=== PATIENT | male | born 1965 | race Caucasian/White ===

== ENCOUNTER 2017-05-27 16:37 | Emergency (ER) | payer BC, OTHER ==
--- NOTE | 2017-05-27 16:42 | EDM.PDOC ---
ED HPI GENERAL MEDICAL PROBLEM - General Chief Complaint: General Stated Complaint: Finger Laceration Time Seen by Provider: 05/27/17 16:37 Source of Information: Reports: Patient, Old Records ([facility] chart/EMR) History Limitations: Reports: No Limitations - History of Present Illness INITIAL COMMENTS - FREE TEXT/NARRATIVE: The patient drove himself to the emergency room via private automobile for evaluation of a Workmen's Compensation injury, which occurred at about 15:45 hours. He accidentally cut himself on a sharp piece of metal on a piece of machinery with no history of foreign body, paresthesias, neurological deficits, or other complaints or injuries. He did rinse the laceration sites with tap water with subsequent placement of Band-Aids but no other treatment prior to arrival. His last DTaP was given on 08/17/2011, which was confirmed by the emergency room today. The patient denies any chest pain/pressure, heart flutter , dizziness, orthostasis, orthopnea, diaphoresis, paresthesias, recent decreased exercise tolerance, or any other anginal-type symptoms. No recent history of abdominal pain, heartburn, nausea, diarrhea, melena, gross hematochezia, or any food intolerance, including fatty foods, etc.. The patient also denies any recent fever, cough, wheezing, dyspnea, etc.. Onset: Today, Sudden Onset Date: 05/27/17 Onset Time: 15:45 Duration: Constant Location: Reports: Upper Extremity, Left. Denies: Head, Face, Neck, Chest, Abdomen, Back, Upper Extremity, Right, Radiates to Quality: Reports: Same as Previous Episode, Sharp Severity: Mild Improves with: Reports: Rest Worsens with: Reports: Movement Context: Reports: Trauma (As above) Associated Symptoms: Denies: Confusion, Chest Pain, Cough, cough w sputum, Diaphoresis, Fever/Chills, Headaches, Loss of Appetite, Malaise, Nausea/Vomiting , Rash, Seizure, Shortness of Breath, Syncope, Weakness Treatments [employer]: Reports: Dressing(s) Left Hand Pain Score (Numeric/FACES): 1 - Related Data Allergies Allergy/AdvReac Type Severity Reaction Status Date / Time adhesive Allergy Cannot Verified 05/27/17 17:09 Remember amlodipine Allergy Edema Verified 05/27/17 17:09 amoxicillin Allergy Cannot Verified 05/27/17 17:09 Remember measles, mumps, and rubella Allergy Other Verified 05/27/17 17:09 vaccine NSAIDS (Non-Steroidal Allergy Other Verified 05/27/17 17:09 Anti-Inflamma zoster vaccine live Allergy Other Verified 05/27/17 17:09 Home Meds: Home Meds Alendronate [Fosamax] 0.5 tab PO RODRIGUEZ 05/27/17 [History] Aspirin 81 mg PO DAILY 05/27/17 [History] Calcium Carbonate [Tums] 1,000 mg PO DAILY 05/27/17 [History] Cholecalciferol (Vitamin D3) [Vitamin D] 1 cap PO DAILY 05/27/17 [History] Methylprednisolone [IJD: Methylprednisolone] 4 mg PO DAILY PRN 05/27/17 [History ] Multivitamin with Minerals [Multivitamins with Minerals] 1 tab PO DAILY [History] Mycophenolate Mofetil 500 mg PO Q12HR 05/27/17 [History] Tacrolimus [Prograf] 1.5 mg PO Q12HR 05/27/17 [History] Past Medical History HEENT History: Reports: Impaired Vision, Other (See Below). Denies: Allergic Rhinitis, Glaucoma, Hard of Hearing, Macular Degeneration, Retinal Detachment Other HEENT History: Patient wears glasses Cardiovascular History: Reports: Arrhythmia, Hypertension, Other (See Below). Denies: Afib, Aneurysm, Blood Clots/VTE/DVT, CAD, Heart Failure, Heart Murmur, High Cholesterol, [place], PVD, Syncope Other Cardiovascular History: History of unknown type of cardiac arrhythmia including some tachycardia. Hypertension prior to renal transplant with no further medications required thereafter Respiratory History: Reports: Intubation, Previous. Denies: Asthma, Bronchitis , Recurrent, COPD, PE, Pneumonia, Recurrent, Pneumothorax, Sleep Apnea Gastrointestinal History: Reports: Inflammatory Bowel Disease, Other (See Below) . Denies: Bowel Obstruction, Celiac Disease, Cholelithiasis, Chronic Constipation, Chronic Diarrhea, Colon Polyp, Diverticulosis, Fecal Incontinence , Gastritis, GERD, GI Bleed, Hepatitis, Hiatal Hernia, Irritable Bowel Syndrome , Jaundice, Pancreatitis, PUD Other Gastrointestinal History: Crohn's disease initially diagnosed in 1996 with no symptoms and no current medical therapy required Genitourinary History: Reports: Chronic Renal Insuffiency, Other (See Below). Denies: Acute Renal Failure, BPH, Dialysis, Renal Calculus, STD, Urinary Incontinence, UTI, Recurrent Other Genitourinary History: Polycystic kidney disease requiring renal transplant as below Musculoskeletal History: Reports: Arthritis, Back Pain, Chronic, Fracture, Gout , Neck Pain, Chronic, Osteoarthritis, Osteoporosis, Other (See Below). Denies: Amputation, RA, SLE Other Musculoskeletal History: Proximal fifth right metacarpal fracture in about 1979; fracture of the middle phalanx of digit #4 of the left hand in about 1977. Mid transverse fracture of the proximal phalanx of digit #2 of the left hand on 02/14/05. Right ankle fracture in about 2004 Neurological History: Reports: Concussion, Head Trauma, Other (See Below). Denies: Cerebral Aneurysms, CVA, Headaches, Chronic, Migraines, MS, Parkinson's , Seizure, TIA Other Neuro History: Head concussion with skull fracture at age 9 years Psychiatric History: Reports: None. Denies: Abuse, Victim of, ADD, ADHD, Addiction, Anxiety, Depression, Psych Hospitalization(s), PTSD, Suicide Attempt , Suicidal Ideation Endocrine/Metabolic History: Reports: Osteopenia, Osteoporosis. Denies: Diabetes, Type I, Diabetes, Type II, Diabetes Mellitus, Type 3c, Hypothyroidism , IDDM Hematologic History: Reports: Anemia, Iron Deficiency, Other (See Below). Denies: Blood Transfusion(s) Other Hematologic History: Iron deficiency anemia prior to renal transplantation Immunologic History: Reports: None. Denies: AIDS, HIV, SLE Oncologic (Cancer) History: Reports: Basal Cell Carcinoma, Other (See Below). Denies: Colon, Hodgkin's Lymphoma, Leukemia, Malignant Melanoma, Non-Hodgkin's Lymphoma, Prostate, Squamous Cell Carcinoma Other Oncologic History: basal cell carcinoma on the back excised in January 2017 Dermatologic History: Reports: Other (See Below). Denies: Eczema, Psoriasis Other Dermatologic History: Basal cell carcinoma as above/below. Actinic keratosis. Skin tags - Infectious Disease History Infectious Disease History: Reports: Chicken Pox, Measles, Shingles (Left lower back and abdominal shingles in about 2011. 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 Denies: C-Difficile, Meningitis, Mononucleosis, MRSA, Mumps, Pertussis (Whooping Cough), Rheumatic Fever, Rubella, Scarlet Fever , TB, VRE - Past Surgical History Head Surgeries/Procedures: Reports: None HEENT Surgical History: Reports: Oral Surgery, Other (See Below). Denies: Adenoidectomy, Cataract Surgery, Eye Surgery, Laser Surgery, LASIK, Myringotomy w Tube(s), Naso-Sinus Surgery, Tonsillectomy Other HEENT Surgeries/Procedures: [place] teeth extraction 4 in 1996 Cardiovascular Surgical History: Reports: None. Denies: Varicose Respiratory Surgical History: Reports: None. Denies: Thoracentesis GI Surgical History: Reports: Colonoscopy, Hernia, Inguinal, Other (See Below). Denies: Appendectomy, Cholecystectomy, EGD, Hernia, Abdominal, Hernia Repair/ Other, Polypectomy Other GI Surgeries/Procedures: Bilateral inguinal hernia repair initially on the left side in 1999 then on the right side in 2003 Male Surgical History: Reports: Circumcision, Other (See Below). Denies: Prostate Biopsy, TURP-Transurethral Resection of Prostate, Vasectomy Other Male Surgeries/Procedures: Circumcision as an . Left renal transplant on 09/27/14. Peritoneal dialysis catheter placement in March 2014 subsequent removal in August 2014 with no previous history of actual dialysis Endocrine Surgical History: Reports: None. Denies: Thyroid Biopsy Neurological Surgical History: Reports: None. Denies: C-Spine, Discectomy, Intracranial, Laminectomy, Lumbar Spine, Spinal Fusion Musculoskeletal Surgical History: Reports: None. Denies: Arthroscopic Procedure , Carpal Tunnel, Ganglion Cyst, Joint Replacement, ORIF, Shoulder Surgery Oncologic Surgical History: Reports: None Dermatological Surgical History: Reports: Other (See Below) Other Dermatological Surgeries/Procedures: Lipoma removal from posterior cervical region in about 2002. Previous removal of multiple skin tags. Excision of basal cell carcinoma as above. Removal of actinic keratosis in October 2007 - Past Imaging History Past Imaging History: Reports: Upper GI X-Ray/Series (Upper GI in 2010) Social & Family History - Tobacco Use Smoking Status *Q: Never Smoker Used Tobacco, but Quit: No Smoking Cessation Information Provided To Patient: No Second Hand Smoke Exposure: No Second Hand Smoke Education Provided: No - Alcohol Use Days Per Week of Alcohol Use: 0 (No previous DWIs, problems with alcohol abuse, etc.) Number of Drinks Per Day: 1 (Occasional wine twice per year) Total Drinks Per Week: 0 Alcohol Use in Last Twelve Months: Yes - Recreational Drug Use Recreational Drug Use: No Drug Use in Last 12 Months: No Recreational Drug Type: Denies: Amphetamines (Speed), Cocaine, Heroin, Inhalants (Glues, Solvents, Aerosols), LSD (Acid), Marijuana/Hashish, Methamphetamine, Morphine - Living Situation & Occupation Living situation: Reports: (1994, no children), with Family 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 ED EXAM, GENERAL - Physical Exam Exam: See Below Exam Limited By: No Limitations General Appearance: Alert, WD/WN, No Apparent Distress Head: Atraumatic, Normocephalic Neck: Normal Inspection, Supple, Non-Tender, Full Range of Motion. No: Lymphadenopathy (L), Lymphadenopathy (R), Thyromegaly Respiratory/Chest: No Respiratory Distress, Lungs Clear, Normal Breath Sounds, No Accessory Muscle Use, Chest Non-Tender. No: Pleural Rub, Retractions Cardiovascular: Normal Peripheral Pulses, Regular Rate, Rhythm, No Edema, No Gallop, No JVD, No Murmur, No Rub. No: Gallop/S3, Gallop/S4, Friction Rub Peripheral Pulses: 2+: Radial (L), Radial (R) GI/Abdominal: Normal Bowel Sounds, Soft, Non-Tender, No Organomegaly, No Distention, No Abnormal Bruit, No Mass. No: Guarding (Male) Exam: Deferred Rectal (Males) Exam: Deferred Back Exam: Normal Inspection, Full Range of Motion. No: CVA Tenderness (L), CVA Tenderness (R), Muscle Spasm Extremities: Normal Range of Motion, No Pedal Edema, Normal Capillary Refill, Other (0.51 cm superficial lacerations over the palmar distal aspects of the distal phalanx of digit #2, 3, and 4 of the left hand with additional 1-1.5 cm superficial scratch/abrasion over the flexor aspect of the left wrist; no evidence of foreign body, deformity, etc.). No: Non-Tender (Mild localized tenderness/palpation pain at the laceration siteS), Pedal Edema, Mariam's Sign Neurological: Alert, Oriented, CN II-XII Intact, Normal Cognition, Normal Gait, No Motor/Sensory Deficits Psychiatric: Normal Affect, Normal Mood Skin Exam: Wound/Incision (As above). No: Ecchymosis, Petechiae Lymphatic: No Adenopathy Course - Vital Signs Last Recorded V/S: Last Vital Signs Temp 36.8 C 05/27/17 16:45 Pulse 76 05/27/17 16:45 Resp 16 05/27/17 16:45 BP 126/78 05/27/17 16:45 Pulse Ox 97 05/27/17 16:45 Vital Signs - 24 hr 05/27/17 16:45 Temperature [ 36.8 C Temporal] Pulse, 76 Peripheral [ Pulse Oximetry] Respiratory 16 Rate Blood Pressure 126/78 [Right Upper Arm] O2 Sat by Pulse 97 Oximetry - Orders/Labs/Meds Orders: Active Orders 24 hr Category Date Time Status Vaccines to be Administered [RC] PER UNIT ROUTINE Care 05/27/17 16:45 Active Obtain Past Medical Record [OM.PC] Routine Oth 05/27/17 16:43 Active Labs: None Meds: Medications Discontinued Medications Generic Name Dose Route Start Last Admin Trade Name Freq PRN Reason Stop Dose Admin Diphtheria/Tetanus/Acell Pertussis 0.5 ml 05/27/17 16:45 05/27/17 16:58 Adacel IM 05/27/17 16:46 0.5 ml .ONCE ONE Administration Neomycin/Polymyxin/Bacitracin 1 each 05/27/17 16:43 05/27/17 16:50 Triple Antibiotic Oint TOP 05/27/17 16:44 1 each ONETIME ONE Administration - Radiology Interpretation Free Text/Narrative:: None Departure - Departure Time of Disposition: 17:30 Disposition: Home, Self-Care 01 Condition: Good Clinical Impression: Renal insufficiency Hand laceration Qualifiers: Encounter type: initial encounter Foreign body presence: without foreign body Laterality: left Qualified Code(s): S61.412A - Laceration without foreign body of left hand, initial encounter Osteoarthritis Qualifiers: Osteoarthritis location: multiple joints Osteoarthritis type: primary Qualified Code(s): M15.0 - Primary generalized (osteo)arthritis Hypertension Qualifiers: Hypertension type: secondary to other renal disorders Qualified Code(s): I15.1 - Hypertension secondary to other renal disorders - Discharge Information Instructions: Laceration Care, Adult, [id number], VIS, Tetanus, Diphtheria, and Pertussis (Tdap) - [facility] [place] Referrals: Rachelle Draper PA [Primary Care Provider] - Forms: ED Department Discharge, ED Return to Work/School Form Additional Instructions: 1. Follow up with your regular provider in 10-14 days as needed, if symptoms persist. 2. Tylenol 650 mg by mouth every 4 hours when necessary as directed. 3. Antibacterial soap wash/soak with subsequent antibacterial dressing such as Neosporin, etc. as directed 2 times per day until the wound or laceration site completely heals. Keep the area clean and dry with activity restrictions as discussed. 4. Work excuse- See Form - Problem List & Annotations (1) Hand laceration SNOMED Code(s): 985044076 Code(s): S61.419A - LACERATION WITHOUT FOREIGN BODY OF UNSP HAND, INIT ENCNTR Status: Acute Priority: High Current Visit: Yes Onset Date: 05/27 Annotation/Comment:: The nurse did rinse the laceration sites with tap water and cleansed them with Betadine with subsequent Neosporin dressings placed. Lacerations do not need laceration repair. Workmen's Compensation and work excuse forms were completed. Wound care and activity restrictions were discussed. DTaP given. Qualifiers: Encounter type: initial encounter Foreign body presence: without foreign body Laterality: left Qualified Code(s): S61.412A - Laceration without foreign body of left hand, initial encounter (2) Hypertension SNOMED Code(s): 91162429 Code(s): I10 - ESSENTIAL (PRIMARY) HYPERTENSION Status: Chronic Priority : Medium Current Visit: Yes Annotation/Comment:: No longer requiring medical therapy after renal transplant as above Qualifiers: Hypertension type: secondary to other renal disorders Qualified Code(s): I15.1 - Hypertension secondary to other renal disorders; N28.89 - Other specified disorders of kidney and ureter; N28.89 - Other specified disorders of kidney and ureter (3) Osteoarthritis SNOMED Code(s): 732622988 Code(s): M19.90 - UNSPECIFIED OSTEOARTHRITIS, UNSPECIFIED SITE Status: Chronic Priority: Medium Current Visit: Yes Annotation/Comment:: Stable by history with previous history of gout Qualifiers: Osteoarthritis location: multiple joints Osteoarthritis type: primary Qualified Code(s): M15.0 - Primary generalized (osteo)arthritis (4) Renal insufficiency SNOMED Code(s): 212098578 Code(s): N28.9 - DISORDER OF KIDNEY AND URETER, UNSPECIFIED Status: Chronic Priority: Medium Current Visit: Yes Annotation/Comment:: Stable by history with status post renal transplant and history of polycystic kidney disease as above with patient closely followed by a insurance healthcare representative - Problem List Review Problem List Initiated/Reviewed/Updated: Yes - My Orders Last 24 Hours: My Active Orders 05/27/17 16:43 Obtain Past Medical Record [OM.PC] Routine 05/27/17 16:45 Vaccines to be Administered [RC] PER UNIT ROUTINE - Assessment/Plan Last 24 Hours: My Active Orders 05/27/17 16:43 Obtain Past Medical Record [OM.PC] Routine 05/27/17 16:45 Vaccines to be Administered [RC] PER UNIT ROUTINE Assessment:: As above Plan: As above. Extensive precautions were given to the patient, who is in agreement with the treatment plan. See Patient Instructions for further treatment and plan.
[2017-05-27] MEDS ORDERED: Bacitracin/Neomycin/Polymyxin B Oint 0.9 GM U/D Packet TOP ONE (16:43)
[2017-05-27] MEDS ORDERED: Diphtheria,Pertussis(Acell),Tetanus Vaccine 0.5 ML SDV IM ONE (16:45)
== END 2017-05-27 17:30 | disposition home or self-care (01) ==
LOC: LL.ED 16:37
DX: S61.211A Laceration without foreign body of left index finger without damage to nail, initial encounter (principal); S61.213A Laceration without foreign body of left middle finger without damage to nail, initial encounter; S61.215A Laceration without foreign body of left ring finger without damage to nail, initial encounter; S60.812A Abrasion of left wrist, initial encounter; I12.9 Hypertensive chronic kidney disease with stage 1 through stage 4 chronic kidney disease, or unspecified chronic kidney disease; N18.9 Chronic kidney disease, unspecified; M15.0 Primary generalized (osteo)arthritis; Z23 Encounter for immunization; Z79.82 Long term (current) use of aspirin; Z79.899 Other long term (current) drug therapy; Z88.1 Allergy status to other antibiotic agents; Z88.7 Allergy status to serum and vaccine; Z91.048 Other nonmedicinal substance allergy status; Z88.8 Allergy status to other drugs, medicaments and biological substances; W31.9XXA Contact with unspecified machinery, initial encounter; Y99.0 Civilian activity done for income or pay
CPT/HCPCS: 90715; 99283